=== PATIENT | female | born 1985 | race Caucasian/White ===

== ENCOUNTER 2017-07-23 13:41 | Emergency (ER) | payer BC ==
[~2017-07-23] VITALS: Ht 162.6 cm; Wt 56.3 kg
[2017-07-23 13:46] VITALS: TEMP 36.7; Ht 162.6 cm; Wt 56.3 kg
[2017-07-23] MEDS ORDERED: NORE1CHW11 PO (14:06)
[2017-07-23] MEDS ORDERED: CETI10TA10 PO (14:06)
--- NOTE | 2017-07-23 14:12 | DIAGNOSTIC IMAGING REPORT ---
L FOOT MIN 3 VIEWS ROUTINE CLINICAL HISTORY: L foot injury - especially 5th toe trauma COMPARISON: None. DISCUSSION: Oblique fracture distal aspect proximal phalanx fifth toe. Moderate lateral angulation. No evidence dislocation. All remaining bony structures are unremarkable. IMPRESSION: Laterally angled oblique fracture proximal phalanx fifth toe The above report was generated using voice recognition software. It may contain grammatical, syntax or spelling errors. Electronically signed by: Kurt Crowell M.D. 07/23/2017 2:11 PM Dictated Date/Time: 07/23/2017 2:10 PM
[2017-07-23] MEDS ORDERED: LIDO/EPINEPHRINE/SOD BICARB 20 ML VIAL INFIL ONE (14:50)
--- NOTE | 2017-07-23 15:31 | DIAGNOSTIC IMAGING REPORT ---
L TOE(S) MIN 2 VIEWS CLINICAL HISTORY: L 5th toe fx reduction fracture COMPARISON: Left foot earlier same date DISCUSSION: Oblique fracture proximal phalanx fifth toe is again noted. Lateral angulation is diminished. Mild angulation persists. No evidence of dislocation. There is no evidence for soft tissue swelling. IMPRESSION: Moderately improved alignment status post closed reduction. Moderate persistent lateral angulation of the fracture of the proximal phalanx estimated 24 degrees The above report was generated using voice recognition software. It may contain grammatical, syntax or spelling errors. Electronically signed by: Kurt Crowell M.D. 07/23/2017 3:30 PM Dictated Date/Time: 07/23/2017 3:28 PM
--- NOTE | 2017-07-23 16:13 | DIAGNOSTIC IMAGING REPORT ---
L TOE(S) MIN 2 VIEWS CLINICAL HISTORY: Final L 5th toe fx reduction fracture COMPARISON: Earlier same date DISCUSSION: Oblique fracture proximal phalanx fifth toe. Alignment is anatomic. Moderate soft tissue edema IMPRESSION: Anatomic alignment status post closed reduction The above report was generated using voice recognition software. It may contain grammatical, syntax or spelling errors. Electronically signed by: Kurt Crowell M.D. 07/23/2017 4:11 PM Dictated Date/Time: 07/23/2017 4:11 PM
[2017-07-23 16:14] VITALS: BP 120/64; PULSE 64; O2SAT 99
--- NOTE | 2017-07-23 17:37 | EMERGENCY ROOM VISIT NOTE ---
History First contact with patient: 13:52 Chief Complaint: TOE PAIN, INJURY Stated Complaint: DISLOCATED TOE/FOOT PAIN History of Present Illness The patient is a 32 year old female who presents to the Emergency Room with complaints of a dislocated left fifth toe after she accidentally kicked her couch with her left foot, and developed a deformity. The patient rates her discomfort an 8 out of 10. She denies any pain extending into the foot or ankle. Review of Systems 10 system review was performed and was negative except for pertinent positives and negatives as indicated in history of present illness Past Medical/Surgical History Medical Problems: (1) No significant past medical history Surgical Problems: (1) No history of previous surgery Family History Unremarkable Social History Smoking Status: Never Smoker Alcohol Use: occasionally Marital Status: Housing Status: lives with family Occupation Status: employed Current/Historical Medications Scheduled Cetirizine Hcl (Zyrtec), 10 MG PO DAILY Norethin Acet & Estrad-Fe (Minastrin 24 Fe), 1 TAB PO DAILY Physical Exam Vital Signs Date Time Temp Pulse Resp B/P (MAP) Pulse Ox O2 Delivery O2 Flow Rate FiO2 07/23/17 16:14 64 20 120/64 99 07/23/17 13:46 36.7 68 18 117/71 99 Room Air Physical Exam CONSTITUTIONAL: Healthy and well nourished. Alert and oriented X 3 with positive affect. Patient appears in moderate discomfort from pain. HEENT: Normocephalic, atraumatic. Pupils equal, round and reactive. NECK: Full active range of motion without discomfort. MUSCULOSKELETAL: Examination shows a left fifth toe deformity without any open wounds. The patient has no tenderness to palpation through the fifth metatarsal region. Capillary refill of the toe is less than 2 seconds. INTEGUMENTARY: No rash or other significant dermatologic conditions noted. NEUROLOGIC: Left fifth toe is sensory intact. Medical Decision & Procedures ER Provider Diagnostic Interpretation: My interpretation of left foot x-rays shows an oblique an angulated fracture of the fifth proximal phalanx. No other dislocations or fractures noted. Radiologist report is as follows: L FOOT MIN 3 VIEWS ROUTINE CLINICAL HISTORY: L foot injury - especially 5th toe trauma COMPARISON: None. DISCUSSION: Oblique fracture distal aspect proximal phalanx fifth toe. Moderate lateral angulation. No evidence dislocation. All remaining bony structures are unremarkable. IMPRESSION: Laterally angled oblique fracture proximal phalanx fifth toe. 2 additional post reduction x-rays were performed. The initial post reduction x -ray showed a persistent, but improved angulation. After further reduction, the patient had good anatomic alignment. Radiologist reports were reviewed with concurrence. ED Course Patient history and physical exam were performed. Nurse's notes were reviewed. Vital signs were reviewed and were normal. The patient was administered immediate digital block anesthesia for pain relief, and to provide subsequent reduction of her fracture seen on x-ray of the toe. After initial reduction, there was still a deformity of the toe. I elected to perform an x-ray which showed persistent, but improved lateral angulation. With further manipulation, the toe was further reduced with x-ray showing anatomic alignment. The toes were efra taped. The patient was encouraged to ice and elevate the foot for swelling. She was also dispensed crutches as needed for ambulation. She was encouraged to follow-up with orthopedics for further reevaluation and management. Ibuprofen and Tylenol, along with ice and elevation as needed for swelling and pain. The patient was happy with plan of care, voiced understanding of all discharge instructions, and denied any pain at the time of discharge. Medical Decision Medication Reconcilliation Current Medication List: was personally reviewed by me Blood Pressure Screening Patient's blood pressure: Normal blood pressure Impression Primary Impression: Left fifth toe proximal phalanx fracture Departure Information Referrals No Doctor, Assigned (PCP) Patient Instructions My [facility]
== END 2017-07-23 16:15 | disposition home or self-care (01) ==
LOC: C.EDB 13:43 → C.EDD 16:15
DX: S92.512A Displaced fracture of proximal phalanx of left lesser toe(s), initial encounter for closed fracture (principal); W22.8XXA Striking against or struck by other objects, initial encounter

== ENCOUNTER → 2017-08-07 | Outpatient (CLI) | payer BC ==
[~2017-08-07] MED LIST: CETI10TA10 PO; NORE1CHW11 PO
== END | disposition home or self-care (01) ==
LOC: C.RDSM 12:27
PROVIDERS: ATTEND Family Medicine Sports Medicine
DX: S92.502A Displaced unspecified fracture of left lesser toe(s), initial encounter for closed fracture (principal); X58.XXXA Exposure to other specified factors, initial encounter

== ENCOUNTER 2019-08-03 07:58 | Inpatient (IN) ==
[2019-08-03] MEDS ORDERED: OXYTOCIN 30 UNITS/500 ML BAG IV PRN ×3 (11:37→19:04)
--- NOTE | 2019-08-03 11:46 | History & Physical Report ---
Date of Service August 03, 2019 Assessment & Plan (1) Prolonged , antepartum: Patient making very slow change and is three days beyond her due date. Offered patient continued expectant management or offered induction/augmentation. she desires to proceed with augmentation. Plan to admit and then arom, pitocin. Fetus category one. anticipate . History of Present Illness Chief Complaint: contractions Primary Care Provider: NO PCP Patient is a 34yowf with iup at 40 3/7 weeks who presents to labor and delivery with contractions. no lof/vb. Was c/l/h in the office at last check. Is now /-2. intact. complicated by ama with normal testing and low risk panorama. labs--A+/ab-/pap nl/ri/rprnr/hepb-/hiv-/gc/ct-/cf neg/panorama low risk/gtt x 2 nl/gbs neg/sma neg/ Allergies Allergy/AdvReac Type Severity Reaction Status Date / Time No Known Drug Allergies Allergy Verified 07/30/19 10:18 Home Medications Home Medications Medication Instructions Recorded Confirmed Type 1 tab PO DAILY 05/28/19 08/03/19 History vitamin,calcium,tsqsruot-ydvk-yhixd acid tablet Patient History Medical History History of asthma exercise induced, no current inhaler rx, no attacks in the past 10 years History of chronic diarrhea History of osteopenia History of varicella Surgical History History of hip surgery left labral tear repair History of nasal septoplasty S/P wisdom tooth extraction Social History Preferred Language: Libyan Communication Ability: Effective Beliefs That Will Affect Care: None marital status: Current Living Situation: Spouse Smoking Status: Never smoker Second Hand Exposure: No ; Hx Alcohol Use: No Hx Substance Use: No OB History g1--present [employer] History no stds, no abnl paps Review of Systems All systems reviewed & are unremarkable except as noted in HPI & below Physical Exam Constitutional: WD/WN, vitals as above Gastrointestinal (Abdomen): soft, nt, nd, gravid Psychiatric: A+Ox3, euthymic affect Genitourinary: cx--280/-2 toco--q8 min efm--130s with mod variability, accels to 150s, no decels Results & Data Vital Signs (Past 12 Hours) Vital Signs Temp Pulse Resp BP 08/03/19 08:10 36.8 C 72 16 102/73 Code Status & VTE Plan VTE Prophylaxis Plan VTE Prophylaxis will be ordered: No
[2019-08-03 11:56] LABS: Hemoglobin 13.3 g/dL (12.0-16.0); Mean Corpuscular Hemoglobin 34.5 pg (25-34); Mean Corpuscular Volume 95.9 fL (80-100); Mean Platelet Volume 11.8 fL (7.4-10.4); Platelet Count 147 K/uL (130-400); RDW Coefficient of Variation 12.2 % (11.5-14.5); RDW Standard Deviation 42.4 fL (36.4-46.3); Red Blood Count 3.86 M/uL (4.2-5.4); White Blood Count 12.08 K/uL (4.8-10.8)
[2019-08-03 12:00] LABS: Mean Corpuscular Hgb Conc 35.9 g/dL (32-36)
[2019-08-03] MEDS: LACTATED RINGER'S 1,000 ML IV PRN ×2 (12:47→13:59)
--- NOTE | 2019-08-03 12:49 | Labor Progress Brief Note ---
Date of Service August 03, 2019 Subjective uncomfortable with contractions Assessment & Plan (1) Prolonged , antepartum: pitocin per protocol. epidural on demand. anticipate . Physical Exam Constitutional: WD/WN, vitals as above Psychiatric: A+Ox3, euthymic affect Genitourinary: cx--2/80/-2/mid/mod toco--q3-6min efm--140s wtih mod variability, accels to 170s, no decels arom--clear Results & Data Vital Signs (Past 12 Hours) Vital Signs Temp Pulse Resp BP 08/03/19 12:39 68 109/67 08/03/19 12:37 36.8 C 20 08/03/19 08:10 36.8 C 72 16 102/73
[2019-08-03] MEDS ORDERED: NALBUPHINE HCL INJ 10 MG/ML AMP IV PRN (13:17)
[2019-08-03] MEDS ORDERED: ONDANSETRON INJ 2 MG/ML 2 ML VIAL IV PRN (13:17)
[2019-08-03] MEDS ORDERED: DiphenhydrAMINE HCL 50 MG/ML VIAL IV PRN (13:17)
[2019-08-03] MEDS ORDERED: fentaNYL 2MCG/ML ROPIV 1.25MG/ML 100 ML BAG EPI PRN (13:17)
[2019-08-03] MEDS ORDERED: ePHEDrine sulfate 50 MG/ML AMP IV PRN (13:17)
[2019-08-03] MEDS ORDERED: NALOXONE HCL 1 MG in SODIUM CHLORIDE 0.9% 1000ML 1,000 ML IV PRN (13:17)
[2019-08-03] MEDS ORDERED: NALOXONE HCL 0.4 MG/1 ML VIAL/CARP IV PRN (13:17)
[2019-08-03] MEDS ORDERED: BUPIVACAINE 0.25% 30 ML VIAL ONE (13:19)
[2019-08-03] MEDS ORDERED: fentaNYL citrate 100 MCG/2 ML VIAL ONE (13:19)
[2019-08-03] MEDS ORDERED: ePHEDrine sulfate 50 MG/ML AMP ONE (13:19)
[2019-08-03] MEDS ORDERED: fentaNYL 2MCG/ML ROPIV 1.25MG/ML 100 ML BAG EPI ONE (13:20)
--- NOTE | 2019-08-03 13:21 | Anesthesiology Consultation ---
Date of Service August 03, 2019 Assessment & Plan (1) Encounter for pre-operative examination: Chart Review Chart Review: Acceptable Risk for Labor Epidural Consults Requested none ASA ASA2 Proposed Anesthesia Anesthesia Type: Labor Epidural Risk / Benefits Reviewed With: PT / POA / Parent / Guardian, Accepts Plan and Informed Consent Obtained History Height/Weight Height: 5 ft 5 in Weight: 66.134 kg Allergies Allergy/AdvReac Type Severity Reaction Status Date / Time No Known Drug Allergies Allergy Verified 07/30/19 10:18 Medications Home Medications Medication Instructions Recorded Confirmed Last Taken 1 tab PO DAILY 05/28/19 08/03/19 08/02/19 08:00 vitamin,calcium,dwjhcojw-okmo-tyxgb acid tablet Active Medications Generic Name Dose Route Start Last Admin Trade Name Freq PRN Reason Stop Dose Admin Oxytocin 30 units in 500 mls @ 2 mls/hr 08/03/19 11:37 08/03/19 13:12 Pitocin IV 08/05/19 11:36 0.12 units/hr .Q24H PRN 2 mls/hr Labor Induction/Augmentation Administration Protocol 0.12 UNITS/HR Lactated Ringer's 1,000 mls @ 125 mls/hr 08/03/19 11:37 08/03/19 12:47 Lr IV 08/05/19 11:36 999 mls/hr .Q8H PRN Administration L&D Protocol Protocol Past Medical History Medical History History of asthma exercise induced, no current inhaler rx, no attacks in the past 10 years History of chronic diarrhea History of osteopenia History of varicella Exercise / Class Metabolic Activity II 4-5 Yardwork/Stairs/Walk up hill Past Family History Family History Mother Parkinsons disease Other Osteoporosis Past Surgical History Surgical History History of hip surgery left labral tear repair History of nasal septoplasty S/P wisdom tooth extraction Past Anesthesia History No Hx of Anesthesia Complications and No Family Hx of Anesthesia Complications History of PONV No Hx of PONV and No Hx of Motion Sickness Social History Smoking Status: Never smoker Hx Alcohol Use: No Hx Substance Use: No Physical Exam Vital Signs Last Vital Signs Temp 98.2 F 08/03/19 12:37 Pulse 68 08/03/19 12:39 Resp 20 08/03/19 12:37 BP 109/67 08/03/19 12:39 ENMT Mouth: no dentition abnormality Thyromental Distance: > or= 3.5 Finger Breadths Mallampati Class: II Neck normal visual inspection Respiratory normal respiratory effort Auscultation: lungs clear to auscultation bilaterally Cardiovascular Rate/Rhythm: regular rate and regular rhythm Testing Laboratory Results 08/03/19 11:43
--- NOTE | 2019-08-03 16:28 | Labor Progress Brief Note ---
Date of Service August 03, 2019 Subjective comfortable Assessment & Plan (1) Prolonged , antepartum: doing well. fetus reassuring category two. Continue current management. Physical Exam Constitutional: WD/WN, vitals as above Psychiatric: A+Ox3, euthymic affect Genitourinary: cx--9/100/0, bloody show toco--q3-4min, pit at 5 efm--140s wtih mod variability, occasional variable with contraction Results & Data Vital Signs (Past 12 Hours) Vital Signs Temp Pulse Resp BP Pulse Ox 08/03/19 16:24 67 110/58 L 08/03/19 16:23 62 91 08/03/19 16:22 63 94 08/03/19 16:17 60 99 08/03/19 16:14 66 92 08/03/19 16:12 65 97 08/03/19 16:09 68 110/71 08/03/19 16:07 68 100 08/03/19 16:02 67 100 08/03/19 15:59 66 93 08/03/19 15:57 63 99 08/03/19 15:55 69 112/70 08/03/19 15:52 63 97 08/03/19 15:47 72 98 08/03/19 15:42 57 L 100 08/03/19 15:40 36.7 C 18 08/03/19 15:39 66 114/62 08/03/19 15:37 68 98 08/03/19 15:32 60 98 08/03/19 15:27 61 100 08/03/19 15:25 60 103/59 L 08/03/19 15:24 58 L 93 08/03/19 15:22 60 96 08/03/19 15:18 62 92 08/03/19 15:17 63 100 08/03/19 15:12 62 100 08/03/19 15:10 57 L 18 92/51 L 08/03/19 15:07 66 99 08/03/19 15:02 62 98 08/03/19 14:57 65 97 08/03/19 14:54 60 103/59 L 08/03/19 14:52 66 99 08/03/19 14:47 65 99 08/03/19 14:42 64 98 08/03/19 14:41 60 18 97/54 L 08/03/19 14:37 61 98 10/05/19 14:32 66 98 08/03/19 14:27 67 98 08/03/19 14:24 62 18 94/55 L 08/03/19 14:22 65 98 08/03/19 14:21 65 92/53 L 08/03/19 14:17 65 97 08/03/19 14:12 65 96 08/03/19 14:11 63 93/54 L 08/03/19 14:07 61 97 08/03/19 14:02 66 99 08/03/19 14:01 62 91/54 L 08/03/19 13:58 62 93/52 L 08/03/19 13:57 65 100 08/03/19 13:55 65 90/55 L 08/03/19 13:54 63 90/51 L 08/03/19 13:52 65 85/48 L 100 08/03/19 13:51 64 93/54 L 08/03/19 13:49 67 90/54 L 08/03/19 13:47 67 99 08/03/19 13:46 70 105/55 L 08/03/19 13:43 67 105/59 L 08/03/19 13:42 71 98 08/03/19 13:40 69 101/59 L 08/03/19 13:37 69 98/55 L 100 08/03/19 13:34 68 101/62 08/03/19 13:32 75 97/58 L 100 08/03/19 13:28 77 119/64 08/03/19 13:27 77 100 08/03/19 13:24 73 93 08/03/19 13:22 71 20 100 08/03/19 13:17 20 08/03/19 12:39 68 109/67 08/03/19 12:37 36.8 C 20 08/03/19 08:10 36.8 C 72 16 102/73
[2019-08-03] MEDS ORDERED: OXYCODONE/ACETAMINOPHEN 5mg/325mg TAB PO PRN (18:56)
[2019-08-03] MEDS ORDERED: ACETAMINOPHEN 325 MG TAB PO PRN (18:56)
--- NOTE | 2019-08-03 19:00 | Delivery Summary ---
Vaginal Delivery Summary Date of Service August 03, 2019 Vaginal Delivery Summary Pre-operative Diagnosis: at 40+ weeks early labor ama Post-operative Diagnosis: same Procedure: arom epidural pitocin augmentation second degree laceration with repair EBL: 350cc Anesthesia: epidural Procedure: The patient pushed for just over an hour to deliver a viable female in kendra position. The nose and mouth were bulb suctioned on the perineum , a loose nuchal cord x 1 was easily reduced and the rest of the was then delivered without difficulty. The baby was vigorous. The nose and mouth were again bulb suctioned and the was placed in the maternal abdomen for drying and attention. Cord was clamped and cut at one minute of life. After delivery of the fetus, terminal mec was noted as well as a yuliet colored fluid/bloody fluid. Cord blood and segment obtained. Placenta delivered spontaneous, intact with a three vessel cord. Cervix/sulci/rectum were intact. A second degree perineal laceration was repaired in the normal standard fashion. Hemostasis obtained with dilute pitocin and fundal massage. Apgars were 8/9. Mother and baby doing well at the end of the delivery. [facility] [place] Vaginal Delivery Codes: 70131 global code for the antepartum, delivery, and post-
[2019-08-03] MEDS ORDERED: BENZOCAINE 20% AER SPR 82.5 GM CAN EXT PRN (19:04)
[2019-08-03] MEDS ORDERED: HYDROCORTISONE ACETATE 25 MG SUPP PR PRN (19:04)
[2019-08-03] MEDS ORDERED: SUPERCREAM 0.870% 15 GM JAR EXT PRN (19:04)
[2019-08-03] MEDS ORDERED: DIPHTHERIA/TETANUS/PERTUSSIS 0.5 ML SYR/VIAL IM ONE (19:04)
[2019-08-03] MEDS ORDERED: bisacodyL 10 MG SUPP PR PRN (19:04)
--- NOTE | 2019-08-03 20:37 | Anesthesia Procedure Note ---
Date of Service August 03, 2019 Anesthesia Post Epidural Note Vital Signs Vital Signs: Temp Pulse Resp BP Pulse Ox 36.9 C 86 18 105/65 97 08/03/19 19:00 08/03/19 20:31 08/03/19 20:00 08/03/19 20:31 08/03/19 18:47 Pain Intensity Abdomen: Pain Intensity: 5 Notes Mental Status: alert / awake / arousable and participated in evaluation Nausea / Vomiting: adequately controlled Pain: adequately controlled Airway Patency, RR, SpO2: stable & adequate BP & HR: stable & adequate Hydration State: stable & adequate Neuraxial Anesthesia: was administered and sensory block is resolving Anesthetic Complications: no major complications apparent and Pt Satisfied with anesthetic care Epidural: Removed without complications and With tip intact Notes: Epidural site clean, dry and intact. No signs of edema, erythema or bruising at insertion site. Pt instructed to request anesthesia if she has residual lower extremity numbness or if she develops lower extremity pain or weakness, back pain or headache.
[2019-08-03] MEDS: DOCUSATE SODIUM 100 MG CAP PO SCH (21:57)
[2019-08-04] MEDS: IBUPROFEN 600 MG TAB PO PRN ×2 (05:21→21:05)
[2019-08-04 06:38] LABS: Hemoglobin 11.9 g/dL (12.0-16.0)
[2019-08-04] MEDS: DOCUSATE SODIUM 100 MG CAP PO SCH ×2 (07:41→21:05)
[2019-08-04] MEDS: PRENATAL VITAMIN 1 TAB PO SCH (07:41)
--- NOTE | 2019-08-04 09:18 | Obstetrical Progress Note ---
Date of Service August 04, 2019 Assessment & Plan (1) Vaginal delivery: Doing well. Routine care. Day #:: 1 Subjective Ambulation: ambulating normally Voiding: no voiding problems Passing Gas:: Yes Diet Tolerance:: regular diet Lochia:: Small Feeding Type:: breast feeding Physical Exam Constitutional WD/WN, vitals as above Gastrointestinal (Abdomen) soft, nt, nd fundus firm , nt 1 below u Results & Data Vital Signs (Past 12 Hours) Vital Signs Temp Pulse Pulse Resp BP BP 08/04/19 05:15 36.8 C 66 18 108/70 08/04/19 00:10 36.9 C 63 18 104/64 08/03/19 21:30 36.9 C 76 18 111/58 L
[2019-08-04] MEDS ORDERED: bisacodyL 5 MG TABEC PO SCH (20:00)
--- NOTE | 2019-08-05 06:09 | Obstetrical Progress Note ---
Date of Service August 05, 2019 Assessment & Plan (1) Vaginal delivery: 34 yo AGA s/p @ 40.3 weeks PPD#2 w/ second degree tear -PPD# 2 - GBS negative, Blood Type A+ - Feels well today. Eating well, voiding well, ambulating well. - Pain well controlled. - Routine care - After discharge will have [address] Loco. Supervising Physician Co-Signing Physician Notes Resident Physician Supervision Note: I interviewed and examined the patient. Discussed with Dr. Denton and agree with findings and plan as documented in the note. Any exceptions or clarifications are listed here: Doing well. Plan d/c. Instructions given. Documented By: Elisha Loco MD, FACOG Subjective Doing well this morning, working on and pumping. no questions or concerns today. Feels ready to go home today. Review of Systems Review of Systems: Denies fever, sweats Denies shortness of breath, difficulty breathing, chest pain, palpitations, chest pressure. Denies breast pain. Denies dysuria. Denies headache. Physical Exam Physical Exam: General: Alert, oriented. No acute distress. Cardiac: Regular rate and rhythm, no murmurs/rubs/gallops. Respiratory: Clear to auscultation anterior and posteriorly, no wheezes/rales/rhonchi. No increased work of breathing. Symmetrical chest rise. No respiratory distress. Abdomen: Soft, nontender, nondistended. Bowel sounds present. Uterus: Uterine fundus firm, at the umbilicus. Lower Extremities: No lower extremity edema or swelling. No deep calf pain. Dieter's negative bilaterally. Results & Data Vital Signs (Past 12 Hours) Vital Signs Temp Pulse Resp BP 08/04/19 23:30 36.4 C L 67 18 100/68 PG Care Time/CCT Total # of Minutes Spent Total Time Spent with Patient: Total time spent is greater than 50% in coordination of care (as documented) at patient's floor/unit and/or counseling patient:
[2019-08-05] MEDS: PRENATAL VITAMIN 1 TAB PO SCH (08:33)
[2019-08-05] MEDS: DOCUSATE SODIUM 100 MG CAP PO SCH (08:33)
== END 2019-08-05 15:00 | disposition home or self-care (01) | DRG 807 ==
LOC: OPB 07:58 → 4S1 08:01 → 4S2 21:46